=== PATIENT | female | born 1985 | race Caucasian/White ===

== ENCOUNTER 2019-08-31 11:30 | Emergency (ER) | payer OTHER ==
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
[2019-08-31 12:03] LABS: BASOPHILS % 0.5 % (0.0-1.5); NEUTROPHILS # 4.4 # k/uL (1.4-7.7)
[2019-08-31 12:08] LABS: eGFR (Non-African) > 60
[2019-08-31] MEDS: 0.9 % SODIUM CHLORIDE 1,000 ML IV ONE (12:50)
[2019-08-31] MEDS: HALOPERIDOL LACTATE 5 MG/ML VIAL IM ONE ×2 (12:50→15:32)
--- NOTE | 2019-08-31 13:24 | Diagnostic Imaging Report ---
PATIENT MR#: [id number] PATIENT PATIENT NAME: BARBY WASSERMAN DATE OF : 1985 REFERRING PHYSICIAN: Rivas Celestin EXAM DATE: 08/31/2019 ACCESSION NUMBER: [id number] EXAM DESCRIPTION: CT BRAIN W/O CONTRAST Examination: CT head without contrast History: ALTERED MENTAL STATUS Comparison exam: None available Technique: Noncontrast head CT protocol. Findings: Ventricles and sulci are appropriate for patient age. Cerebrocerebellar parenchyma demonstr ates normal attenuation. No evidence for parenchymal hemorrhage. No evidence for mass or mass effect. No midline shift. No extra axial fluid collections. Partial visualization of the paranasal sinuses, mastoid air cells, orbits, s kull and scalp without gross irregularity. Impression: No acute parenchymal process. No hemorrhage. Read by: Dr. Michael Mullins Transcribed by: Transcribed Date: Electronically signed by: Dr. Michael Mullins Date signed: 08/31/2019 1:23:20 PM
[2019-08-31 16:09] LABS: APPEARANCE,URINE CLOUDY (CLEAR); COLOR,URINE AMBER (YELLOW)
[2019-08-31 16:10] LABS: OCCULT BLOOD,URINE 3+ (NEGATIVE); UROBILINOGEN URINE 0.2 Eu (0.2-1.0)
[2019-09-01 08:59] VITALS: BP 101/63
== END 2019-09-01 08:40 | disposition short-term general hospital (02) ==
LOC: ED 11:30
DX: F29 Unspecified psychosis not due to a substance or known physiological condition (principal); Z86.59 Personal history of other mental and behavioral disorders
CPT/HCPCS: 70450; 80053; 80320; 81002; 84443; 84703; 85025; 87086; 87186; 93005; 96360; 99284; J1630; J7030; G0480